=== PATIENT | male | born 1955 | race Caucasian/White ===

== ENCOUNTER 2016-12-22 03:40 | Emergency (ER) | payer SELFPAY ==
[~2016-12-22] VITALS: Ht 172.7 cm; Wt 89.0 kg
[2016-12-22 04:18] LABS: BASOPHILS % 0.8 % (0.0-2.0); EOSINOPHILS % 3.5 % (0.0-5.0); HEMOGLOBIN. 13.8 g/dL (14.0-18.0); LYMPHOCYTES % 45.5 % (20.0-50.0); MEAN CORPUSCULAR HGB CONC 33.7 g/dL (31.0-37.0); MEAN PLATELET VOLUME 7.4 fl (7.4-10.4); MONOCYTES % 8.1 % (2.0-8.0); NEUTROPHILS % 42.1 % (40.0-76.0); PLATELET 191 x1000/uL (130-400); RED BLOOD CELL COUNT 4.94 mill/uL (4.7-6.1); RED CELL DISTRIBUTION WIDTH 14.1 % (11.6-14.6); WHITE BLOOD COUNT 5.6 x1000/uL (4.5-11.0)
[2016-12-22 04:32] LABS: ALBUMIN 3.7 g/dL (3.4-5.0); CARBON DIOXIDE 27 mEq/L (21-32); INDEX HEMOLYSI 1 (1-3); INDEX ICTERIC 1 (1-4); INDEX LIPEMIC 1 (1-3); NT PRO B-TYPE NATRIURETIC PEP 62 pg/mL (5-125); TROPONIN I < 0.02 ng/mL (0.00-0.04); UREA NITROGEN BLOOD 20 mg/dL (7-21); eGFR > 60 mL/min (>60)
[2016-12-22 04:43] LABS: ANION GAP 13; CHLORIDE 106 mEq/L (98-107)
[2016-12-22 04:44] LABS: ALANINE AMINOTRANSFERASE 43 IU/L (13-61); CALCIUM 8.9 mg/dL (8.5-10.1)
[2016-12-22 05:45] VITALS: BP 136/86
== END 2016-12-22 05:53 | disposition home or self-care (01) ==
LOC: ER 03:40
DX: R00.2 Palpitations (principal); I48.91 Unspecified atrial fibrillation; E78.00 Pure hypercholesterolemia, unspecified; I10 Essential (primary) hypertension; E03.9 Hypothyroidism, unspecified; Z79.01 Long term (current) use of anticoagulants
CPT/HCPCS: 36415; 71010; 80053; 83880; 84484; 85025; 85379; 93005; 99285